=== PATIENT | male | born 1995 ===

== ENCOUNTER 2017-07-30 10:00 | Outpatient (CLI) | payer OTHER ==
[~2017-07-30] VITALS: Ht 185.4 cm; Wt 88.9 kg
== END 2017-07-30 10:15 | disposition home or self-care (01) ==
LOC: OFIC 805 10:00
DX: J39.1 Other abscess of pharynx (principal); K21.9 Gastro-esophageal reflux disease without esophagitis; R07.0 Pain in throat; R13.19 Other dysphagia

== ENCOUNTER 2017-12-17 09:02 | Outpatient (CLI) | payer OTHER ==
[~2017-12-17] VITALS: Ht 182.9 cm; Wt 88.9 kg
== END 2017-12-17 09:20 | disposition home or self-care (01) ==
LOC: OFIC 805 09:02
DX: R13.19 Other dysphagia (principal); J39.2 Other diseases of pharynx; R04.0 Epistaxis; K21.0 Gastro-esophageal reflux disease with esophagitis